=== PATIENT | male | born 1970 | race Caucasian/White ===

== ENCOUNTER 2017-07-02 15:43 | Emergency (ER) | payer MEDICAID ==
[~2017-07-02] VITALS: Ht 172.7 cm; Wt 80.3 kg
[~2017-07-02 15:43] MED LIST: COL100 PO; FLO4 PO; GLUCOTROL5 MG PO; HUMULIN R100 U/1 M1 SC; LIPITOR80 MG PO; MAC100 PO; METFORMIN HYD1000 M1 PO; MYCO TOP; NOR10T PO
[2017-07-02 17:51] LABS: BASOPHIL % 0.4 % (0-2); PLATELET COUNT 292 x10^3mcL (130-400); RED CELL DISTRIBUTION WIDTH 13.6 % (11.5-14.5)
[2017-07-02 18:06] LABS: CALCIUM 9.2 mg/dL (8.5-10.1); CARBON DIOXIDE 31.2 mmol/L (21-32); CHLORIDE SERUM 101 mmol/L (98-107); CREATININE SERUM 0.8 mg/dL (0.7-1.3); GFR1 > 60 mL/min; GLUCOSE SERUM 324 mg/dL (74-106); POTASSIUM SERUM 4.6 mmol/L (3.5-5.1); SODIUM SERUM 136 mmol/L (136-145)
[2017-07-02 18:10] LABS: ALBUMIN 3.6 g/dL (3.4-5.0); ALKALINE PHOSPHATASE 159 U/L (46-116); ALT/SGPT 27 U/L (16-63); AST/SGOT 10 U/L (15-37); BILIRUBIN TOTAL 0.44 mg/dL (0.20-1.00); HDL CHOLESTEROL 36 mg/dL (40-60); LIPASE 210 IU/L (73-393); TOTAL PROTEIN, SERUM 7.5 g/dL (6.4-8.2)
[2017-07-02 18:13] LABS: CHOLESTEROL 299 mg/dL (<200); CHOLESTEROL/HDL RATIO 8.3; TRIGLYCERIDES 264 mg/dL (<150)
[2017-07-02 18:21] LABS: T3 TOTAL 1.07 ng/mL
[2017-07-02 18:45] LABS: FREE T4 1.27 ng/dL (0.76-1.46); FREE THYROXINE INDEX 3.5 ug/dL (1.4-4.5); T4(THYROXINE) 9.6 ug/dL (4.7-13.3)
[2017-07-02 19:46] LABS: microscopic required? NO
[2017-07-02 19:54] LABS: UA SPECIFIC GRAVITY 1.015 (1.005-1.035); urine erythrocyte NEGATIVE (NEGATIVE)
[2017-07-02 20:32] VITALS: BP 127/83
== END 2017-07-02 20:32 | disposition home or self-care (01) ==
LOC: ED 15:43
PROVIDERS: Specialist
DX: E11.65 Type 2 diabetes mellitus with hyperglycemia (principal)
CPT/HCPCS: 36600; 83880; 84439; J7030